=== PATIENT | female | born 1925 | race Caucasian/White ===

== ENCOUNTER 2016-05-08 12:22 | Outpatient (CLI) | payer MEDICARE ==
[~2016-05-08] VITALS: Ht 165.1 cm; Wt 71.7 kg
[~2016-05-08 12:22] MED LIST: AC500T PO; ACHD5005 PO; ANTI1CAP2 PO; ASP81TEC PO; BISA5TAB8 PO; CARV12.52 PO; CHOL10003 PO; CRV25T PO; ESCT10T PO; FISH1CAP15 PO; FLUO20CA25 PO; HYDR-3583 PO; HYDR-89 PO; LEVO750T24 PO; LISI10TA PO; LORA1TAB PO; MELO15TA14 PO; MELO7.5T PO; METO25TA2 PO; MULT-608 PO; NFPRILOC40 PO; OMEG1CAP74 PO; RIVA10TA PO; SMV10T PO; TRAZ150T42 PO; TRZ50T PO; VIT1TABL95 PO; ZLP5T PO
[2016-05-08] MEDS ORDERED: TRIAMCINOLONE ACET (KENALOG-40) 40 MG/ML 1 ML VIAL ONE (12:38)
[2016-05-08] MEDS ORDERED: LIDOCAINE 1% INJ 20 ML (XYLOCAINE) VIAL ONE (12:38)
[2016-05-08] MEDS ORDERED: BUPIVACAINE 0.25% 30 ML (SENSORCAINE) VIAL ONE (12:38)
[2016-05-08 12:47] VITALS: BP 120/94
[2016-05-08 13:08] VITALS: BP 152/98
--- NOTE | 2016-05-08 14:55 | Pain Medicine-Procedure ---
Procedure Pre-Op/Post-Op Diagnosis Diagnosis: sacrococcygeal disorder Indications for Operation Hip pain Attending Surgeon Jono Procedure Date of Service: May 08, 2016 Procedure: Flouroscopic guided left sacroiliac joint injection PROCEDURE IN DETAIL: After obtaining informed consent from the patient, the patient's chart was reviewed. The patient was then brought to the procedure room and placed in the prone position. A time out was performed. The back was prepped with antiseptic solution and under fluoroscopic guidance the patient's sacroiliac joint on the left side was identified. Left sacroiliac joint was identified with fluoroscopic guidance and 2 mL's of 1% lidocaine was used to anesthestize the skin and then one 22-gauge 3.5 inch spinal needle was inserted and advance under flouroscopic guidance until it was in the posterior inferior 1 /3 of the SI joint on the left side. After negative aspiration, needle was injected with 80 mg of Kenalog along with 2 mL's of 0.25% marcaine. Needle was then flushed with 1% lidocaine and then removed. Band-Aids were applied to all the sites and the patient tolerated the procedure well and was taken to the recovery area in stable condition. Complications None SHALONDA MTZ MD May 08, 2016 2:55 pm
== END 2016-05-08 13:14 ==
LOC: CARD 12:22
PROVIDERS: ATTEND Pain Medicine Pain Medicine
DX: M53.3 Sacrococcygeal disorders, not elsewhere classified (principal); Z79.899 Other long term (current) drug therapy
CPT/HCPCS: 27096

== ENCOUNTER → 2016-07-18 | Outpatient (CLI) | payer MEDICARE | LOC: CARD 10:32 | PROVIDERS: ATTEND Internal Medicine Cardiovascular Disease | DX: Z01.810 Encounter for preprocedural cardiovascular examination (principal); I49.3 Ventricular premature depolarization; I10 Essential (primary) hypertension; I42.9 Cardiomyopathy, unspecified | CPT/HCPCS: 93225; 93226 ==

== ENCOUNTER 2016-08-11 09:07 | Outpatient (CLI) | payer MEDICARE ==
[~2016-08-11] VITALS: Ht 165.1 cm; Wt 71.7 kg
[2016-08-11] MEDS ORDERED: TRIAMCINOLONE ACET (KENALOG-40) 40 MG/ML 1 ML VIAL ONE (09:11)
[2016-08-11] MEDS ORDERED: BUPIVACAINE 0.25% 30 ML (SENSORCAINE) VIAL ONE (09:11)
[2016-08-11] MEDS ORDERED: LIDOCAINE 1% INJ 20 ML (XYLOCAINE) VIAL ONE (09:11)
[2016-08-11 09:18] VITALS: BP 88/62
[2016-08-11 10:03] VITALS: BP 103/66
--- NOTE | 2016-08-11 12:37 | Pain Medicine-Procedure ---
Procedure Pre-Op/Post-Op Diagnosis Diagnosis: sacrococcygeal disorder Indications for Operation Hip pain Attending Surgeon Jono Procedure Date of Service: August 11, 2016 Procedure: Flouroscopic guided left sacroiliac joint injection PROCEDURE IN DETAIL: After obtaining informed consent from the patient, the patient's chart was reviewed. The patient was then brought to the procedure room and placed in the prone position. A time out was performed. The back was prepped with antiseptic solution and under fluoroscopic guidance the patient's sacroiliac joint on the left side was identified. Left sacroiliac joint was identified with fluoroscopic guidance and 2 mL's of 1% lidocaine was used to anesthestize the skin and then one 22-gauge 3.5 inch spinal needle was inserted and advance under flouroscopic guidance until it was in the posterior inferior 1 /3 of the SI joint on the left side. After negative aspiration, needle was injected with 80 mg of Kenalog along with 2 mL's of 0.25% marcaine. Needle was then flushed with 1% lidocaine and then removed. Band-Aids were applied to all the sites and the patient tolerated the procedure well and was taken to the recovery area in stable condition. Complications None SHALONDA MTZ MD August 11, 2016 12:37 pm
== END 2016-08-11 10:05 | disposition home or self-care (01) ==
LOC: CARD 09:07
PROVIDERS: ATTEND Pain Medicine Pain Medicine
DX: M53.3 Sacrococcygeal disorders, not elsewhere classified (principal)
CPT/HCPCS: 27096

== ENCOUNTER 2016-08-24 08:59 | Outpatient (CLI) | payer MEDICARE ==
[~2016-08-24] VITALS: Ht 165.1 cm; Wt 71.7 kg
[2016-08-24] MEDS ORDERED: CARV12.53 PO (09:14)
[2016-08-24] MEDS ORDERED: PANT40TA3 PO (09:14)
[2016-08-24] MEDS ORDERED: FLUO20CA42 PO (09:14)
[2016-08-24] MEDS ORDERED: MELO15TA39 PO (09:14)
[2016-08-24] MEDS ORDERED: HYDR-3812 PO (09:14)
[2016-08-24 09:23] VITALS: BP 112/75
[2016-08-24 10:49] LABS: BASOPHILS % (AUTO) 1 % (0-10); EOSINOPHILS # (AUTO) 0.2 10^3/uL (0.0-0.3); EOSINOPHILS % (AUTO) 3 % (0-10); LYMPHOCYTES # (AUTO) 1.2 X 10^3 (1.0-4.0); LYMPHOCYTES % (AUTO) 19 % (12-44); MEAN CORPUSCULAR HEMOGLOBIN 32 PG (25-34); MEAN CORPUSCULAR HGB CONC 33 G/DL (32-36); MEAN CORPUSCULAR VOLUME 96 FL (80-99); MEAN PLATELET VOLUME 10.9 FL (7.4-10.4); MONOCYTES # (AUTO) 0.7 X 10^3 (0.0-1.0); MONOCYTES % (AUTO) 11 % (0-12); NEUTROPHILS # (AUTO) 4.3 X 10^3 (1.8-7.8); NEUTROPHILS % (AUTO) 67 % (42-75); PLATELET COUNT 170 10^3/uL (130-400); RED BLOOD COUNT 3.65 10^6/uL (4.35-5.85); RED CELL DISTRIBUTION WIDTH 13.4 % (10.0-14.5); WHITE BLOOD COUNT 6.4 10^3/uL (4.3-11.0)
== END 2016-08-24 10:00 | disposition home or self-care (01) ==
LOC: PREOP 08:59
PROVIDERS: ATTEND Surgery Pediatric Surgery
DX: Z01.812 Encounter for preprocedural laboratory examination (principal); Z11.2 Encounter for screening for other bacterial diseases; K43.2 Incisional hernia without obstruction or gangrene; K42.9 Umbilical hernia without obstruction or gangrene
CPT/HCPCS: 36415; 85025; 87081

== ENCOUNTER 2016-08-31 06:30 | Day surgery (SDC) | payer MEDICARE ==
[~2016-08-31] VITALS: Ht 165.1 cm; Wt 71.7 kg
[~2016-08-31 06:30] MED LIST changes: +CARV12.53 PO; +FLUO20CA42 PO; +HYDR-3812 PO; +MELO15TA39 PO; +PANT40TA3 PO
[2016-08-31] MEDS ORDERED: NS (IVPB) 50 ML ONE (06:55)
[2016-08-31] MEDS ORDERED: ceFAZolin 1,000 MG (ANCEF) VIAL ONE (06:55)
[2016-08-31] MEDS ORDERED: FAMOTIDINE 20MG/2ML IV (PEPCID) IV ONE (07:00)
[2016-08-31] MEDS: LACTATED RINGERS 1,000 ML IV PRN ×2 (07:06→09:56)
[2016-08-31] MEDS ORDERED: BUP/EPI 0.5% 1:200,000 (SENSORCAINE) 30 ML VIAL ONE (07:11)
[2016-08-31 07:37] VITALS: BP 128/83
[2016-08-31] MEDS ORDERED: CATHETER FLUSH 10 ML SYR IV PRN (07:45)
[2016-08-31] MEDS ORDERED: ceFAZolin 1 GM/NS 50 ML IVPB IV ONE ×2 (07:45)
[2016-08-31] MEDS ORDERED: SEVOFLURANE (ULTANE) 15 ML INHAL SOLN ONE ×7 (07:48→09:59)
[2016-08-31] MEDS ORDERED: HURRICAINE EXT TUBE (BENZOCAINE) ONE (07:48)
[2016-08-31] MEDS ORDERED: proPOfol 200 MG/20 ML (DIPRIVAN) VIAL IV ONE (07:48)
[2016-08-31] MEDS ORDERED: fentaNYL INJECTION 100 MCG/2 ML AMP ONE (07:48)
[2016-08-31] MEDS ORDERED: DEXAMETHASONE PF 10 MG/ML (DECADRON) VIAL ONE (07:48)
[2016-08-31] MEDS ORDERED: MIDAZOLAM 2 MG/2 ML (VERSED) VIAL ONE (07:48)
[2016-08-31] MEDS ORDERED: LACTATED RINGERS 1,000 ML IV ONE (07:48)
[2016-08-31] MEDS ORDERED: LIDOCAINE PF 2% 5 ML (XYLOCAINE) VIAL ONE (07:48)
[2016-08-31] MEDS ORDERED: ATRACURIUM 50 MG/5 ML (TRACRIUM) IV ONE (07:50)
--- NOTE | 2016-08-31 07:52 | Progress Note-Pre Operative ---
Pre-Operative Progress Note H&P Reviewed The H&P was reviewed, patient examined and no changes noted. Date Seen by Provider: Aug 31, 2016 Time Seen by Provider: 07:49 Date H&P Reviewed: Aug 31, 2016 Time H&P Reviewed: 07:45 Pre-Operative Diagnosis: Ventral abdominal incisional, possible spigelian hernia, umbilical hernia CLAUDIA GIFFORD APRN Aug 31, 2016 7:52 am
[2016-08-31] MEDS ORDERED: ACETAMINOPHEN 325 MG TABLET/CAPLET (TYLENOL) PO PRN (08:00)
[2016-08-31] MEDS ORDERED: HYDROcodone/APAP 5 MG/325 MG (LORTAB) TAB PO ONE (08:00)
--- NOTE | 2016-08-31 10:09 | Progress Note-Post Operative ---
Post-Operative Progess Note Surgeon (s)/Document Reviewer (s) Surgeon DAGOBERTO MALAGON MD Document Reviewer: kourtney biggs [employer] Pre-Operative Diagnosis Ventral abdominal incisional, possible spigelian hernia, umbilical hernia Post-Operative Diagnosis ventral abdominal incisional hernia left lower quadrant. umbilical hernia. Procedure & Operative Findings Date of Procedure 08/31/16 Procedure Performed/Findings open ventral abdominal incisional hernia repair with mesh. umbilical hernia repair with mesh. Anesthesia Type GET Estimated Blood Loss Estimated blood loss (mL): minimal Specimens/Packing Specimens Removed umbilical hernia sac DAGOBERTO MALAGON MD Aug 31, 2016 10:09 am
[2016-08-31] MEDS ORDERED: HYDR-3730 PO (10:10)
[2016-08-31] MEDS ORDERED: GLYCOPYRROLATE 0.2 MG/ML (ROBINUL) 2 ML VIAL ONE (10:11)
[2016-08-31] MEDS ORDERED: NEOSTIGMINE (BLOXIVERZ ) 1 MG/1ML 10 ML VIAL ONE (10:11)
--- NOTE | 2016-08-31 10:11 | Discharge Inst-Surgical ---
D/C Lap Instructions-VESNA New, Converted, or Re-Newed RX: RX on Chart Follow Up Appt in 2 weeks Activity as tolerated No driving for 24 hours No driving while on pain medications Incentive Spirometry use every 2 hours while awake abdominal binder on at all times Regular Diet Symptoms to Report: Fever over 101 degree F, Nausea/Vomiting Infection Signs and Symptoms to report: Increased redness, Foul odor of wound, Increased drainage Bathing instructions: May shower Operative Area Clean/Dry; Keep incision clean/dry If any problems/questions: Contact your physician or go to Emergency Room DAGOBERTO MALAGON MD Aug 31, 2016 10:11 am
[2016-08-31] MEDS: morphine INJ 10 MG/ML 1ML (SYR OR VIAL) IVP PRN ×5 (10:30→22:35)
[2016-08-31 12:00] VITALS: BP 140/74
--- NOTE | 2016-08-31 12:35 | OPERATIVE REPORT ---
DATE OF SERVICE: 08/31/2016 PREOPERATIVE DIAGNOSIS: Left lower quadrant abdominal incisional hernia, reducible. A reducible umbilical hernia. POSTOPERATIVE DIAGNOSIS: Left lower quadrant abdominal incisional hernia, reducible. A reducible umbilical hernia. PROCEDURES: 1. Open left lower quadrant reducible ventral abdominal incisional hernia repair with mesh. 2. Open reducible umbilical hernia repair with mesh. SURGEON: Dr. Malagon. COMMUNICATION SPEC: Andrew Soares APRN ANESTHESIA: General endotracheal. ESTIMATED BLOOD LOSS: Minimal. FINDINGS: Small umbilical hernia approximately 2 mm in size with omentum within the hernia sac. Incisional hernia along the left lower abdominal quadrant from a previous incision with the defect approximately 3 cm in size. DISPOSITION: The patient tolerated the procedure well. INDICATIONS: The patient is an 89-year-old female with an outpouching and pain in the left lower abdominal quadrant. 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 She also does have a history of cardiac arrhythmia and has seen a medical director of hospice in the past for this. She was on Xarelto in the past; however, now only takes aspirin 81 mg daily. She also does have a longstanding history of anemia. She was seen in the office for pain as well as an outpouching in the left lower abdomen as well as the umbilical region. She had had an open left inguinal hernia repair in the past as well as a section, which encompassed the same incision. Upon examination, she was found to have an incisional hernia with a defect approximately 3 cm in size. She also had a reducible umbilical hernia, which was painful to palpation. DESCRIPTION OF PROCEDURE: The patient was brought to the operating room, laid supine on the table. After adequate IV pain and sedating medications and general endotracheal intubation, the abdomen was prepped and draped in standard surgical fashion. Marcaine 0.5% with epinephrine was used to anesthetize the supraumbilical rim. A small crescent-shaped skin incision was then made using a 15 blade. The subcutaneous tissue was then dissected until the hernia sac was identified. The entire hernia sac was then dissected out using electrocautery to the fascial base. The hernia sac was then opened using cautery with only omentum within the hernia sac. The entire hernia sac was then excised using electrocautery under direct visualization. This hernia defect was approximately 2 cm in size. We used this opening to palpate the incisional hernia in the left lower abdominal quadrant. This appeared to be an incisional hernia approximately 3 cm in size. We then marked this area and anesthetized this area as well. A transverse skin incision was then made along the previous incision adeline using a 15 blade. Subcutaneous tissue was then dissected down. The hernia was then identified and opened under direct visualization. This fascial defect was approximately 3 cm in size. We first proceeded with repair of the left lower abdominal quadrant incisional hernia. A 6.4 diameter coated polypropylene mesh was then placed into the defect. This was then sutured to the fascia using interrupted 0 Prolene sutures. Due to the laxity of the abdominal wall, the external oblique was reapproximated using an 0 Prolene running suture. Good hemostasis was observed. We then proceeded to repair the umbilical hernia. A 4.2 cm coated polypropylene mesh was then placed into the umbilical hernia defect. We then proceeded to place a transfascial concentric interrupted 0 Prolene sutures approximating the mesh to the fascia. Good hemostasis was observed. The subcutaneous tissue to both incisions were then closed using 3-0 Vicryl interrupted sutures. Both skin incisions were then closed using 4-0 Monocryl running subcuticular sutures. Wounds were then cleaned and covered with Dermabond. The patient tolerated the procedure well. We will admit her for observation due to her infectious history and continue with IV antibiotics as well as pain control due to her septic arthritis with IV as well as oral pain medication. She will also be instructed to refrain from any lifting or exertion for the next 6 weeks. Job ID: [id number] DocumentID: [id number] Dictated Date: 08/31/2016 10:28:14 Network Systems Administrator Date: 08/31/2016 12:11:47 Dictated By: DAGOBERTO MALAGON MD
[2016-08-31] MEDS ORDERED: TRAZ-28 PO (14:41)
[2016-08-31] MEDS ORDERED: LORA1TAB PO (14:41)
[2016-08-31] MEDS ORDERED: CARV25TA PO (14:41)
[2016-08-31] MEDS ORDERED: HYDR-753 PO (14:41)
[2016-08-31] MEDS ORDERED: FURO20TA4 PO (14:41)
[2016-08-31] MEDS ORDERED: VIT1CAPS31 PO (14:41)
[2016-08-31] MEDS ORDERED: SIMV10TA3 PO (14:51)
[2016-08-31 16:00] VITALS: BP 132/62
[2016-08-31] MEDS: ceFAZolin INJECTION 1,000 MG in NS (IVPB) 50 ML IV SCH ×2 (16:01→23:32)
[2016-08-31] MEDS: ONDANSETRON 4 MG/2 ML (SDV) Z0FRAN IVP PRN (17:12)
[2016-08-31] MEDS: HYDROcodone/APAP 7.5 MG/325 MG (LORTAB, LORCET PLUS) TABLET PO PRN ×2 (19:51→23:56)
[2016-08-31 20:00] VITALS: BP 122/54
[2016-09-01 00:10] VITALS: BP 152/71
[2016-09-01] MEDS: ONDANSETRON 4 MG/2 ML (SDV) Z0FRAN IVP PRN (03:17)
[2016-09-01] MEDS: morphine INJ 10 MG/ML 1ML (SYR OR VIAL) IVP PRN (03:18)
[2016-09-01 04:20] VITALS: BP 137/61
[2016-09-01] MEDS: ceFAZolin INJECTION 1,000 MG in NS (IVPB) 50 ML IV SCH (08:28)
[2016-09-01] MEDS: HYDROcodone/APAP 7.5 MG/325 MG (LORTAB, LORCET PLUS) TABLET PO PRN (08:36)
[2016-09-01 08:54] VITALS: BP 136/72
--- NOTE | 2016-09-01 09:39 | Progress Note-Standard ---
Standard Progress Note Progress Notes/Assess & Plan Date Seen by Provider: Sep 01, 2016 Time Seen by Provider: 09:30 Progress/Assessment & Plan s/p open incisional and umbilical hernia repair with mesh. tolerating diet. pain controlled. ambulating at baseline. home soon. abdominal binder on at all times for 2 weeks. DAGOBERTO MALAGON MD Sep 01, 2016 9:39 am
[2016-09-01 10:29] VITALS: BP 136/72
== END 2016-09-01 10:29 | disposition home or self-care (01) ==
LOC: SDC 06:30 → 4TH 11:15 → SDC 09-01 10:29 → ENPENDDIS 09-01 12:00
PROVIDERS: ATTEND Surgery Pediatric Surgery
DX: K43.2 Incisional hernia without obstruction or gangrene (principal); K42.9 Umbilical hernia without obstruction or gangrene; I10 Essential (primary) hypertension; E78.00 Pure hypercholesterolemia, unspecified; I49.9 Cardiac arrhythmia, unspecified; D64.9 Anemia, unspecified; Z79.899 Other long term (current) drug therapy
CPT/HCPCS: 88302; 94664

== ENCOUNTER → 2016-12-07 | Outpatient (CLI) | payer MEDICARE ==
[~2016-12-07] MED LIST changes: +CARV25TA PO; +FURO20TA4 PO; +HYDR-3730 PO; +HYDR-753 PO; +SIMV10TA3 PO; +TRAZ-28 PO; +VIT1CAPS31 PO
== END ==
LOC: LAB 11:32
PROVIDERS: ATTEND Internal Medicine
DX: R60.9 Edema, unspecified (principal)
CPT/HCPCS: 36415; 85379

== ENCOUNTER → 2016-12-11 | Outpatient (CLI) | payer MEDICARE ==
--- NOTE | 2016-12-11 13:37 | Diagnostic Imaging Report ---
EXAMINATION: Right lower extremity duplex venous ultrasound. TECHNIQUE: DVT protocol. Multiple sonographic images with color Doppler and waveform interrogation were performed of the right lower extremity veins with compression and augmentation maneuvers. INDICATION: Right leg swelling. FINDINGS: The right lower extremity veins from the groin to below the knee veins were examined with normal color-flow, compressibility and normal waveform demonstrated. The great saphenous vein is patent. There is a Draper's cyst measuring 5 x 1 x 3 cm. IMPRESSION: No evidence of DVT in the right lower extremity. Draper's cyst. Dictated by: Dictated on workstation # [id number]
== END ==
LOC: RAD 10:55
PROVIDERS: ATTEND Internal Medicine
DX: M71.21 Synovial cyst of popliteal space [Baker], right knee (principal); R79.1 Abnormal coagulation profile; R22.41 Localized swelling, mass and lump, right lower limb

== ENCOUNTER 2017-01-11 05:41 | Outpatient (CLI) | payer MEDICARE ==
[~2017-01-11] VITALS: Ht 165.1 cm; Wt 71.7 kg
[2017-01-11] MEDS ORDERED: ASPI-999 PO (14:10)
[2017-01-11] MEDS ORDERED: LISI10TA2 PO (14:10)
[2017-01-11] MEDS ORDERED: MULT1TAB69 PO (14:10)
[2017-01-12] MEDS ORDERED: HYDR-3820 PO (07:35)
[2017-01-12] MEDS ORDERED: AMOX875T2 PO (07:36)
[2017-01-12] MEDS ORDERED: PANT40TA3 PO (08:32)
== END 2017-01-11 14:12 ==
LOC: PREOP 05:41
PROVIDERS: ATTEND Internal Medicine
DX: Z01.818 Encounter for other preprocedural examination (principal); R13.10 Dysphagia, unspecified

== ENCOUNTER 2017-01-12 07:01 | Day surgery (SDC) | payer MEDICARE ==
--- NOTE | 2017-01-10 22:18 | HISTORY AND PHYSICAL ---
DATE OF SERVICE: EGD HISTORY AND PHYSICAL HISTORY OF PRESENT ILLNESS: The patient is an 89-year-old white female, reporting one-month history of intermittent epigastric discomfort. She had one melanotic stool about a month ago, but it did follow the use of Pepto-Bismol. Since that time, she has had progressive dysphagia predominantly to solids, but no problems with liquids. She reports her p.o. intake has decreased and believes she has had about a 5-pound weight loss over the past month. She has had no subsequent melena or bright red blood per rectum. PAST MEDICAL HISTORY: Significant for past erosive esophagitis that has required dilatation. She denies any history of Knott's. She has a history of hypertension, longstanding and chronic venous insufficiency. SOCIAL HISTORY: She is with no significant past smoking or drinking history. PAST SURGICAL HISTORY: She has had right hip replacement in 2006 for osteoarthritis that had to be revised on 2 different occasions. She has had an appendectomy in 1946, hysterectomy in 1964, hemorrhoid surgery in , cholecystectomy in 2011, she underwent a colonoscopy in 2012 with no evidence for neoplasia. PHYSICAL EXAMINATION: GENERAL: Reveals normal weight white female, who weight is down 5 pounds over the past month. VITAL SIGNS: Blood pressure 100/60, heart rate 72 and regular. She denies any problems with lightheadedness when she gets up. CHEST: Clear. CARDIOVASCULAR: Reveals regular rate and rhythm with a soft 1-2/6 systolic ejection murmur heard best at the left lower sternal border without pulses tardus, S3 or S4. ABDOMEN: Reveals some epigastric discomfort to palpation without rebound or guarding. No mass or organomegaly is noted. EXTREMITIES: Reveal 1+ edema with chronic venous insufficiency change. No evidence for ulceration is noted. ASSESSMENT AND PLAN: For further evaluation of dysphagia with weight loss the patient is set up for a repeat EGD with possible dilatation to follow on the 12 of January. The patient is to abstain from aspirin and nonsteroidal medication in the interim. Job ID: [id number] DocumentID: [id number] Dictated Date: 01/10/2017 19:34:25 Information Broker Date: 01/10/2017 20:57:02 Dictated By: MELANY TAPIA MD [facility]
[~2017-01-12] VITALS: Ht 165.1 cm; Wt 71.7 kg
[~2017-01-12 07:01] MED LIST changes: +ASPI-999 PO; +LISI10TA2 PO; +MULT1TAB69 PO
[2017-01-12] MEDS ORDERED: D5 LR IV SOLUTION 1,000 ML IV ONE (07:06)
[2017-01-12] MEDS ORDERED: fentaNYL INJECTION 100 MCG/2 ML AMP IVP PRN (07:15)
[2017-01-12] MEDS ORDERED: D5 LR IV SOLUTION 1,000 ML IV STA (07:15)
[2017-01-12] MEDS ORDERED: HURRICAINE EXT TUBE (BENZOCAINE) XX PRN (07:15)
[2017-01-12] MEDS ORDERED: LIDOCAINE JELLY 2% (XYLOCAINE) 5 ML TUBE MM PRN (07:15)
[2017-01-12] MEDS ORDERED: MIDAZOLAM 2 MG/2 ML (VERSED) VIAL IVP PRN (07:15)
[2017-01-12 07:27] VITALS: BP 188/90
--- NOTE | 2017-01-12 07:33 | Pre-Op Note & Conscious Sedat ---
Pre-Operative Progress Note H&P Reviewed The H&P was reviewed, patient examined and no changes noted. Date H&P Reviewed: Jan 12, 2017 Time H&P Reviewed: 07:31 Conscious Sedation Pre-Proced ASA Class: 3 Airway Mallampati Classification: (little shell [place] appropriate class) I. II. III, IV Lungs Heart ASA score ASA 1: a normal healthy patient ASA 2: a patient with a mild systemic disease (mid diabetes, controlled hypertension, obesity ASA 3: a patient with a severe systemic disease that limits activity (angina , COPD, prior Myocardial infarction) ASA 4: a patient with an incapacitating disease that is a constant threat to life (CHF, renal failure) ASA 5: a moribund patient not expected to survive 24 hrs. (ruptured aneurysm) ASA 6: a declared brain patient whose organs are being harvested. For emergent operations, add the letter E after the classification Grade 2 Sedation Plan: Analgesia, Amnesia, Plan communicated to team members, Discussed options with patient/fam, Discussed risks with patient/fam Note The patient is an appropriate candidate to undergo the planned procedure, sedation, and anesthesia. The patient immediately re-assessed prior to indication. MELANY TAPIA MD Jan 12, 2017 07:33
[2017-01-12] MEDS ORDERED: HYDR-3820 PO (07:35)
[2017-01-12] MEDS ORDERED: AMOX875T2 PO (07:36)
[2017-01-12] MEDS ORDERED: LIDOCAINE JELLY 2% (XYLOCAINE) 5 ML TUBE ONE (07:40)
[2017-01-12] MEDS ORDERED: MIDAZOLAM 2 MG/2 ML (VERSED) VIAL ONE (07:41)
[2017-01-12] MEDS ORDERED: fentaNYL INJECTION 100 MCG/2 ML AMP ONE (07:41)
[2017-01-12] MEDS ORDERED: HURRICAINE EXT TUBE (BENZOCAINE) ONE (07:41)
[2017-01-12] MEDS ORDERED: PANT40TA3 PO (08:32)
[2017-01-12 08:40] VITALS: BP 147/77
[2017-01-12 09:10] VITALS: BP 143/77
[2017-01-12 10:25] VITALS: BP 143/77
--- NOTE | 2017-01-12 12:41 | OPERATIVE REPORT ---
DATE OF SERVICE: INDICATION FOR PROCEDURE: Dysphagia to solids. The patient was placed in the left lateral decubitus position. The endoscope was inserted in the oral cavity under direct visualization, the esophagus was intubated. The endoscope was passed down the esophagus through the stomach and second portion of duodenum. Careful inspection was made as the endoscope was withdrawn. The patient tolerated the procedure well. FINDINGS: Posterior hypopharynx, arytenoid aperture, true and false vocal folds and epiglottis were unremarkable. The esophagus was somewhat tortuous with one small traction appearing diverticulum in the mid esophagus. The lower esophageal sphincter was widely patent with a moderate sized hiatal hernia. The Z line was proximally placed at 32 cm from the incisor orifice secondary to this. Erythema was noted at the Z line without evidence for erosive esophagitis, stricture formation or Knott's change. Photograph was obtained. The cardia of the stomach was unremarkable. There is some mild antral erythema present with atrophic change and loss of the usual rugal fold pattern in the fundus of the stomach. Present in the antrum was a shallow benign appearing ulcer with white base and no visible vessel formation. No evidence for blood clots or blood in the stomach was noted. Biopsies times 2 were obtained from the ulcer and one from the antrum for histopathology and Helicobacter evaluation. The pylorus, the pyloric channel, the duodenal bulb and second portion of the duodenum were unremarkable. 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 Erythema was noted at the Z line without evidence for erosive esophagitis. A moderate size hiatal hernia was present with loss of the usual rugal fold pattern in the cardia of the stomach suggesting atrophic gastritis. There was a benign appearing, likely nonsteroidal or aspirin related shallow ulcer in the antrum of the stomach. There was no induration on biopsy. No evidence for visible vessel formation or blood in the stomach. Biopsies were obtained with minimal bleeding and submitted for histopathology and Helicobacter evaluation. The patient was advised to discontinue aspirin and nonsteroidal therapy with the addition of pantoprazole 40 mg daily. Discussed the importance of increased fluid intake at the time of solids and careful mastication. The patient will follow up with me in one month. Job ID: [id number] DocumentID: [id number] Dictated Date: 01/12/2017 08:41:58 Echo Vascular Technologist Date: 01/12/2017 12:40:35 Dictated By: MELANY TAPIA MD MTDD
== END 2017-01-12 10:25 | disposition home or self-care (01) ==
LOC: ENDO 07:01
PROVIDERS: ATTEND Internal Medicine
DX: K29.50 Unspecified chronic gastritis without bleeding (principal); K44.9 Diaphragmatic hernia without obstruction or gangrene; I10 Essential (primary) hypertension; I87.2 Venous insufficiency (chronic) (peripheral); Z96.641 Presence of right artificial hip joint
CPT/HCPCS: 88305; 88342

== ENCOUNTER → 2017-01-25 | Outpatient (CLI) | payer MEDICARE ==
[~2017-01-25] VITALS: Ht 165.1 cm; Wt 71.7 kg
[~2017-01-25] MED LIST changes: +AMOX875T2 PO; +HYDR-3820 PO; -VIT1CAPS31 PO; +VIT1CAPS40 PO; +methylPREDNISolone 80 MG/ML (DEPO MEDROL) VIAL ONE
[2017-01-25 14:44] VITALS: BP 125/68
[2017-01-25 15:20] VITALS: BP 117/82
--- NOTE | 2017-01-29 16:29 | OPERATIVE REPORT ---
DATE OF SERVICE: 01/25/2017 DIAGNOSIS: Sacroiliitis. PROCEDURE: Fluoroscopic guided left-sided sacroiliac joint injection. PROCEDURE IN DETAIL: After obtaining informed consent from the patient, the patient's chart was reviewed. The patient was then brought to the procedure room, placed in prone position, a timeout was performed. The patient's back was prepped with antiseptic solution. Under fluoroscopic guidance, the patient's sacroiliac joint on the left side was identified. Left side sacroiliac joint was identified with fluoroscopic guidance and approximately 2 mL of 1.5% lidocaine was used to anesthetize the skin with a 22-gauge 3-1/2 inch spinal needle. This same spinal needle was then advanced under fluoroscopic guidance until it was placed at the inferior third of the SI joint on the left side. After negative aspiration, the solution was injected through the spinal needle. The solution was 80 mg of Depo-Medrol. After steroid was injected, then flushed out the needle with lidocaine used for prep and the needle was then removed. Bandages were applied to all sites. The patient tolerated the procedure well and was taken to recovery area in stable condition. No complications noted. Job ID: [id number] DocumentID: [id number] Dictated Date: 01/29/2017 09:34:16 Oil Burner Repairer Date: 01/29/2017 16:28:52 Dictated By: ANDREA SULLIVAN DO
== END ==
LOC: CARD 13:59
PROVIDERS: ATTEND Pain Medicine Interventional Pain Medicine
DX: M46.1 Sacroiliitis, not elsewhere classified (principal)
CPT/HCPCS: 27096